=== PATIENT | male | born 1955 | race Caucasian/White ===

== ENCOUNTER → 2024-07-05 15:25 | Outpatient (REF) | payer MEDICARE, OTHER, SELFPAY | LOC: RAD 15:25 | PROVIDERS: ATTENDING PHYSICIAN Family Medicine | DX: Z13.6 Encounter for screening for cardiovascular disorders (principal); F17.210 Nicotine dependence, cigarettes, uncomplicated | CPT/HCPCS: 71271; 76770 ==